=== PATIENT | male | born 1945 | race Caucasian/White ===

== ENCOUNTER 2017-01-15 22:07 | Inpatient (IN) | payer OTHER, BC ==
[~2017-01-15] VITALS: Ht 165.1 cm; Wt 84.8 kg
--- NOTE | 2017-01-15 22:07 | NUR ---
BIBA BLS TO ER BED 3
[2017-01-15 22:09] VITALS: BP 108/65
[2017-01-15] MEDS ORDERED: NACL 0.9% 1,000 ML IV ONE (22:15)
--- NOTE | 2017-01-15 23:00 | NUR ---
71/M BIBA C/O LOW HGB 6.6, EMS STATES PT FROM [facility], GOT CALLED IN AROUND 2114. EMS STATES PMD WANT TO SEND PATIENT TO ER DUE TO LOW HGB. AAOx4, BREATHING EVEN AND EFFORTLESS AT THIS TIME. . PT STATES . DENIES N/V/D; SKIN IS PINK/WARM/DRY; AAOX4 WITH EVEN AND STEADY GAIT; LUNGS CLEAR BL; HR EVEN AND REGULAR; PT DENIES ANY FEVER, CP, SOB, OR COUGH AT THIS TIME; PATIENT STATES PAIN OF 0/10 AT THIS TIME; VSS; PATIENT POSITIONED FOR COMFORT; HOB ELEVATED; BEDRAILS UP X2; BED DOWN. ER MD MADE AWARE OF PT STATUS.
[2017-01-16] MEDS ORDERED: PIPERACILLIN/TAZOBACTAM 3.375 GM in DEXTROSE 5% 50 ML IV ONE
[2017-01-16] MEDS ORDERED: NACL 0.9% 500 ML IV ONE
[2017-01-16] MEDS ORDERED: KETOROLAC 30 MG/ML VIAL IVP ONE
[2017-01-16] MEDS ORDERED: PIPERACILLIN/TAZOBACTAM 3.375 GM VIAL IV ONE (00:25)
[2017-01-16] MEDS ORDERED: ONDANSETRON 4 MG/2 ML VIAL IVP PRN (00:35)
[2017-01-16] MEDS ORDERED: HYDROcodone/APAP 7.5/325 MG 1 TAB PO PRN (00:35)
[2017-01-16] MEDS: NACL 0.9% 1,000 ML IV SCH ×3 (01:58→17:24)
--- NOTE | 2017-01-16 02:14 | NUR ---
RECEIVED PT REPORT FROM ORALIA FROM ER AT THIS TIME.
--- NOTE | 2017-01-16 02:33 | NUR ---
Patient will be admitted to care of DR FRAGOSO. Admited to TELE. Will go to [address]. Belongings list completed. Report to FABY GALLOWAY.
[2017-01-16 02:55] VITALS: BP 101/61
--- NOTE | 2017-01-16 02:55 | NUR ---
RECEIVED PT ONTO UNIT IN ROOM 110B. PT NOTED STABLE, NO ACUTE DISTRESS. PT IS WEAK AND UNABLE TO AMBULATE FROM GURNEY TO BED. PT IS A/OX2, ABLE TO FOLLOW COMMANDS AND VERBALIZE NEEDS. VITAL SIGNS ARE STABLE, PLACED PT ON 2L VIA NASAL CANNULA, OXYGEN SATURATION AT 100%. PT DENIES CHEST PAIN, SOB, NAUSEA, AND DIARRHEA. NO RESPIRATORY DISTRESS AT THIS TIME. PT IS AFEBRILE. IV ACCESS TO LEFT HAND #22G, PATENT AND INTACT. NOTED PT TO HAVE SUPRAPUBIC CATHETER IN PLACE, AND INTACT, DRAINING TO GRAVITY OF YELLOW URINE. PT HAS MULTIPLE WOUNDS, NOTED TO RT HEEL COVERED WITH DRESSING, RT LOWER LEG SKIN TEAR, DRESSING INTACT. SACRAL WOUND NOTED, DRESSING CHANGED. PT HAS MULTIPLE SCABS TO FOREHEAD, AND RT ARM DRY SKIN TEAR. SEE WOUND ASSESSMENT. FNS AND WOUND CONSULTS INITIATED. DISCUSSED PLAN OF CARE WITH PT, VERBALIZED UNDERSTANDING. PT ORIENTED TO UNIT AND CALL LIGHT. SAFETY PRECAUTIONS IMPLEMENTED. CALL LIGHT WITHIN REACH. WILL CONTINUE TO MONITOR.
[2017-01-16 04:00] VITALS: BP 143/77
--- NOTE | 2017-01-16 04:10 | NUR ---
PT STABLE, NO ACUTE DISTRESS. VSS. BP STABLE. CALL LIGHT WITHIN REACH. WILL CONTINUE TO MONITOR.
[2017-01-16] MEDS ORDERED: PIPERACILLIN/TAZOBACTAM 2.25 GM VIAL IV ONE (04:55)
--- NOTE | 2017-01-16 05:05 | NUR ---
SPUTUM COLLECTED AT THIS TIME. NOTED SPUTUM SECRETION YELLOW AND THICK, SENT TO LAB.
[2017-01-16] MEDS ORDERED: PIPER/TAZO 2.25GM/D5W PREMIX 50 ML IV SCH (06:00)
[2017-01-16] MEDS ORDERED: PIPERACILLIN/TAZOBACTAM 3.375 GM in DEXTROSE 5% 50 ML IV SCH (06:00)
--- NOTE | 2017-01-16 07:15 | NUR ---
ENDORSED PT TO ZABRINA Escoto RN AT BEDSIDE FOR CONTINUITY OF CARE. NOTED PT STABLE, NO S/S OF DISTRESS. CALL LIGHT WITHIN REACH.
--- NOTE | 2017-01-16 07:16 | NUR ---
RECEIVED REPORT FROM FABY GALLOWAY. PT IS AAOX2,CONFUSED. PT ON 2L NC O2 SAT AT 99%. NO S/S OF DISTRESS NOTED. PT ON CONTACT ISOLATION WITH SIGNS POSTED ON WALL. IV TO LEFT HAND #20, PATENT AND INTACT. NO N/V OR PAIN INDICATED. SACRAL WOUND NOTED, WOUND TO RIGHT HEEL, SKIN TEAR TO RIGHT LOWER LEG AND RIGHT FA. ALL SAFETY PRECAUTIONS IN PLACE, SIDE RAILSX2, BED IN LOW POSITION, AND CALL LIGHT WITHIN REACH. WILL CONTINUE TO MONITOR.
[2017-01-16 08:00] VITALS: BP 117/60
--- NOTE | 2017-01-16 08:45 | NUR ---
PATIENT HAS BEEN SCREENED AND CATEGORIZED HIGH NUTRITION RISK. PATIENT WILL BE SEEN WITHIN 1-2 DAYS OF ADMISSION. 01/16/17-01/17/[address]
[2017-01-16] MEDS: SACCHAROMYCES 250 MG CAP PO SCH ×2 (09:00→21:30)
[2017-01-16] MEDS: DOCUSATE SODIUM 100 MG GELCAP PO SCH (09:00)
[2017-01-16] MEDS ORDERED: FAMOTIDINE 20 MG TAB PO SCH (09:00)
--- NOTE | 2017-01-16 09:05 | NUR ---
PT TOLERATED MEDS WELL. WILL CONTINUE TO MONITOR.
[2017-01-16] MEDS ORDERED: cloNIDine 0.1 MG TAB PO PRN (11:20)
[2017-01-16] MEDS ORDERED: FUROSEMIDE 40 MG TAB PO SCH (11:24)
[2017-01-16] MEDS ORDERED: guaiFENesin 20 MG/ML UDC PO PRN (11:45)
[2017-01-16] MEDS: CLINDAMYCIN 900 MG in DEXTROSE 5% 100 ML IV SCH ×3 (11:54→23:31)
--- NOTE | 2017-01-16 11:55 | NUR ---
PT TOLERATED MEDS WELL. WILL CONTINUE TO MONITOR.
[2017-01-16 12:00] VITALS: BP 106/61
--- NOTE | 2017-01-16 12:15 | NUR ---
TALKED TO DR COLEEN MD AWARE OF PATIENTS MAGNESIUM AT 1.4, SODIUM AT 132, AND HGB AT 7.2. PT REQUIRES SOFTER DIET, AWARE. MD TO PLACE ORDERS.
--- NOTE | 2017-01-16 14:09 | NUR ---
TALKED TO [facility] [place]. MEDICAL RECORDS DEPARTMENT CLOSE FOR THE WEEKEND. WILL ENDORSE.
[2017-01-16] MEDS: LEVOFLOXACIN 750 MG/D5W PREMIX 150 ML IV SCH (14:40)
--- NOTE | 2017-01-16 14:44 | NUR ---
PT TOLERATED MEDS WELL. WILL CONTINUE TO MONITOR.
--- NOTE | 2017-01-16 15:20 | NUR ---
01/16/17 RD INITIAL ASSESSMENT COMPLETED PLEASE REFER TO NUTRITION ASSESSMENT UNDER CARE ACTIVITY FOR ESTIMATED NUTRITIONAL NEEDS. RD RECOMMENDATIONS: 1. RECOMMEND CHANGING REGULAR DIET TO MECHANICAL SOFT. --NOTE RN REPORT PT WITH POOR APPETITE. --NOTE RN REPORT PT HAVING TROUBLE SWALLOWING MEDICATIONS UNLESS IT IS CRUSHED. 2. RD WILL PROVIDE [facility] TID WITH MEALS FOR AN ADDITIONAL 900 KCAL AND 27 GM OF PROTEIN DAILY. 3. ENCOURAGE INCREASED PO INTAKE. 4. RD WILL F/U 2-3 DAYS; HIGH RISK. COBY MCCAIN, RD
--- NOTE | 2017-01-16 15:50 | NUR ---
RT IN TO SEE PT, TO COLLECT SPUTUM.
--- NOTE | 2017-01-16 15:51 | NUR ---
STOOL SENT TO THE LAB TO CHECK FOR OCCULT BLOOD.
[2017-01-16 16:00] VITALS: BP 120/68
--- NOTE | 2017-01-16 16:07 | NUR ---
DR POLK IN TO SEE PT. WILL FOLLOW UP ON ORDERS.
[2017-01-16] MEDS ORDERED: MAGNESIUM OXIDE 400 MG TAB PO SCH (17:00)
[2017-01-16] MEDS: FUROSEMIDE 40 MG TAB PO SCH (17:24)
--- NOTE | 2017-01-16 17:35 | NUR ---
PT TOLERATED MEDS WELL. WILL CONTINUE TO MONITOR.
--- NOTE | 2017-01-16 19:05 | NUR ---
RECEIVED REPORT FROM FABY GERBER AT BEDSIDE. INITIAL ASSESSMENT COMPLETED. PT AA0X2. PT CONFUSED AT TIMES. PT ON 02 2L NASAL CANULA. PT HAS A SUPRAPUBIC CATHETER. PT HAS SCDS ON. PT HAS IV TO LEFT HAND 22 G, INFUSING FLUIDS WELL. PT HAS A SACRAL WOUND COVERED WITH DRESSING DRY AND INTACT. PT HAS A RIGHT HEEL WOUND COVERED WITH DRESSING. ORIENTED PT TO ROOM AND SURROUNDINGS AND USE OF CALL LIGHT. SAFETY/FALL RISK MEASURES IN PLACE, WILL CONTINUE TO MONITOR PT.
--- NOTE | 2017-01-16 19:18 | NUR ---
ENDORSED CARE TO FABY KOTHARI. PT IN STABLE CONDITION.
[2017-01-16 20:00] VITALS: BP 138/78
--- NOTE | 2017-01-16 20:00 | NUR ---
PT TURNED/REPOSITIONED WITH HELP OF PHYLICIA DOWLING. PT TOLERATED IT WELL. NO SIGNS OF DISTRESS OR DISCOMFORT NOTED. WILL CONTINUE TO MONITOR PT.
[2017-01-16] MEDS ORDERED: SACCHAROMYCES 250 MG CAP PO SCH (21:00)
[2017-01-16] MEDS: GABAPENTIN 100 MG CAP PO SCH (21:30)
[2017-01-16] MEDS: NYSTATIN POW 100 MU/GM 15 GM BTL TP SCH (21:33)
--- NOTE | 2017-01-16 21:40 | NUR ---
PT TOLERATED 2100 MEDS WELL, WILL CONTINUE TO MONITOR PT.
--- NOTE | 2017-01-16 22:00 | NUR ---
PT TURNED/REPOSITIONED WITH HELP OF PHYLICIA DOWLING. PT TOLERATED IT WELL. NO SIGNS OF DISTRESS OR DISCOMFORT NOTED. WILL CONTINUE TO MONITOR PT.
[2017-01-17] VITALS: BP 144/78
--- NOTE | 2017-01-17 | NUR ---
PT TURNED/REPOSITIONED WITH HELP OF PHYLICIA DOWLING. PT TOLERATED IT WELL. NO SIGNS OF DISTRESS OR DISCOMFORT NOTED. CHECKED VS AND ARE STABLE. WILL CONTINUE TO MONITOR PT.
--- NOTE | 2017-01-17 01:00 | NUR ---
PT REFUSED TO ALLOWED US TO ASSESS WOUNDS/TEARS. WITNESS BY JOSEY WHATLEY. WILL CONTINUE TO MONITOR.
--- NOTE | 2017-01-17 03:18 | NUR ---
PT REQUESTING ANOTHER BLANKET, PT STABLE, WILL CONTINUE TO MONITOR PT.
[2017-01-17] MEDS: CLINDAMYCIN 900 MG in DEXTROSE 5% 100 ML IV SCH ×4 (05:52→23:29)
[2017-01-17] MEDS: PANTOPRAZOLE 40 MG TABEC PO SCH (05:52)
--- NOTE | 2017-01-17 05:55 | NUR ---
0600 ANTIBIOTIC INFUSING NOW. PT TURNED/REPOSITIONED. WITH HELP OF PHYLICIA DOWLING. PT HAS BEEN TURNED Q2H THROUGHOUT THE SHIFT.
[2017-01-17 06:00] VITALS: BP 140/79
--- NOTE | 2017-01-17 06:00 | NUR ---
PT TURNED/REPOSITIONED WITH HELP OF PHYLICIA DOWLING. PT TOLERATED IT WELL. NO SIGNS OF DISTRESS OR DISCOMFORT NOTED. WILL CONTINUE TO MONITOR PT.
--- NOTE | 2017-01-17 06:55 | NUR ---
RECEIVED CRITICAL LAB VALUE HEMOGLOBIN 6.4, HEMATOCRIT 20.1. CALLED RESIDENTS, AWAITING STRUCTURAL STEEL EQUIPMENT ERECTOR BACK.
--- NOTE | 2017-01-17 07:24 | NUR ---
DR. MARRERO AWARE OF PT'S CRITICAL LAB VALUES: HEMOGLOBIN 6.4, HEMATOCRIT 20.1.
--- NOTE | 2017-01-17 07:26 | NUR ---
ENDORSED PT IN STABLE CONDITION TO FABY Escoto FOR CONTINUITY OF CARE.
--- NOTE | 2017-01-17 07:27 | NUR ---
RECEIVED REPORT FROM FABY KOTHARI. PT IS AAOX4, FORGETFUL AT TIMES. PT ON 2L NC. NO S/S OF DISTRESS NOTED. IV TO LEFT HAND #2 PATENT AND INTACT. WOUND NOTED TO SACRAL AREA, RIGHT HEEL WOUND, RIGHT LEG SKIN TEAR, AND RIGHT FA SKIN TEAR. NO N/V OR PAIN INDICATED. PT ON CONTACT PRECAUTIONS WITH SIGNS POSTED ON WALL, PRECAUTIONS IN PLACE. ALL SAFETY PRECAUTIONS IN PLACE, SIDE RAILSX2, BED IN LOW POSITION, AND CALL LIGHT WITHIN REACH. WILL CONTINUE TO MONITOR.
[2017-01-17 08:00] VITALS: BP 113/61
[2017-01-17] MEDS: SACCHAROMYCES 250 MG CAP PO SCH ×2 (08:59→20:18)
[2017-01-17] MEDS: GABAPENTIN 100 MG CAP PO SCH ×2 (08:59→20:18)
[2017-01-17] MEDS: ECOTRIN 81 MG TABEC PO SCH (09:00)
[2017-01-17] MEDS: FUROSEMIDE 40 MG TAB PO SCH ×2 (09:00→17:01)
[2017-01-17] MEDS: DOCUSATE SODIUM 100 MG GELCAP PO SCH (09:00)
[2017-01-17] MEDS: NYSTATIN POW 100 MU/GM 15 GM BTL TP SCH ×2 (09:01→20:19)
--- NOTE | 2017-01-17 09:18 | NUR ---
VSS. PT TOLERATED MEDS WELL. WILL ADMINISTER BENADRYL AND TYLENOL PRIOR TO BLOOD TRANSFUSION. BLOOD NOT READY AT THIS TIME. WILL CONTINUE TO MONITOR.
--- NOTE | 2017-01-17 09:20 | NUR ---
DR BELLO IN TO SEE PT. WILL FOLLOW UP ON ORDERS.
[2017-01-17] MEDS ORDERED: MAGNESIUM OXIDE 400 MG TAB PO SCH (09:29)
[2017-01-17] MEDS ORDERED: CALCIUM ACETATE 667 MG TAB PO SCH (09:29)
--- NOTE | 2017-01-17 10:06 | NUR ---
RECEIVED CALL FROM LAB. PT'S SECOND SPUTUM CULTURE REJECTED BY CARLOS SAGASTUME. WILL FOLLOW UP WITH .
--- NOTE | 2017-01-17 10:08 | NUR ---
TALKED TO LUIS M PATEL PER TO COLLECT THIRD SAMPLE OF SPUTUM CULTURE WHEN SPUTUM IS POSSIBLE.
--- NOTE | 2017-01-17 10:30 | NUR ---
DR CASTILLO IN TO SEE PT. CHANGED PT'S CATHETER. WILL CONTINUE TO MONITOR.
[2017-01-17] MEDS: ACETAMINOPHEN 325 MG TAB PO SCH ×3 (10:41→16:00)
--- NOTE | 2017-01-17 10:47 | NUR ---
PT TOLERATED MEDS WELL. WILL CONTINUE TO MONITOR.
--- NOTE | 2017-01-17 11:11 | NUR ---
BLOOD COLLECT FROM BLOOD BANK, WILL ADMINISTER.
--- NOTE | 2017-01-17 11:21 | NUR ---
BLOOD TRANSFUSION STARTED. VSS. PT TOLERATING WELL. NO S/S OF DISTRESS NOTED.
--- NOTE | 2017-01-17 11:36 | NUR ---
15 MIN POST TRANSFUSION, PT TOLERATING WELL. NO S/S OF REACTION NOTED. FAMILY PRESENT AT BEDSIDE. WILL CONTINUE TO MONITOR.
[2017-01-17 12:00] VITALS: BP 126/70
--- NOTE | 2017-01-17 12:24 | NUR ---
CLEOCIN WILL BE ADMINISTERED POST TRANSFUSION. WILL ADMINISTER BENADRYL AND TYLENOL AT 1521, FOUR HOURS WHEN TRANSFUSION BEGAN.
--- NOTE | 2017-01-17 12:48 | NUR ---
TALKED TO [facility] STAFF, MEDICAL RECORDS NOT OPEN TODAY TO REQUEST FOR RECORDS. WILL ENDORSE.
[2017-01-17] MEDS: NACL 0.9% 1,000 ML IV SCH (14:14)
--- NOTE | 2017-01-17 14:15 | NUR ---
BLOOD TRANSFUSION COMPLETED. VSS. NO S/S OF DISTRESS NOTED. WILL ADMINISTER LASIX ORDERED. PT TOLERATED. WELL.
[2017-01-17] MEDS: FUROSEMIDE 20 MG TAB PO PRN ×2 (14:26→19:47)
--- NOTE | 2017-01-17 14:27 | NUR ---
BP 121/71, HR 88, ADMINISTERED LASIX ORDERED. WILL CONTINUE TO MONITOR.
[2017-01-17] MEDS: LEVOFLOXACIN 750 MG/D5W PREMIX 150 ML IV SCH (15:17)
--- NOTE | 2017-01-17 15:34 | NUR ---
PT TOLERATED MEDS WELL. WILL CONTINUE TO MONITOR.
--- NOTE | 2017-01-17 15:39 | NUR ---
MEDICAL RECORDS REQUESTED FROM [facility] [place] [address]. MEDICAL RECORDS REQUESTED FROM [facility].
--- NOTE | 2017-01-17 15:50 | NUR ---
NEW IV STARTED ON RIGHT HAND #22, PATENT AND INTACT. REQUIRED FOR SCHEDULED ANTIBIOTICS.
[2017-01-17 16:00] VITALS: BP 117/83
--- NOTE | 2017-01-17 16:16 | NUR ---
SECOND UNIT OF BLOOD TRANSFUSION STARTED. VSS. NO DISTRESS NOTED. WILL CONTINUE TO MONITOR.
--- NOTE | 2017-01-17 16:31 | NUR ---
NO REACTION NOTED. VSS. WILL CONTINUE TO MONITOR.
--- NOTE | 2017-01-17 17:00 | NUR ---
VSS. NO S/S OF DISTRESS NOTED.
--- NOTE | 2017-01-17 18:00 | NUR ---
VSS. NO S/S OF DISTRESS NOTED.
--- NOTE | 2017-01-17 19:15 | NUR ---
HELD TYLENOL AND BENADRYL, BLOOD TRANSFUSION TO BE COMPLETED.
--- NOTE | 2017-01-17 19:16 | NUR ---
ENDORSED CARE TO FABY GALARZA. PT IN STABLE CONDITION.
--- NOTE | 2017-01-17 19:20 | NUR ---
RECEIVED PT SLEEPING, EASILY AROUSABLE, AAOX3, FORGETFUL AT TIMES, PRESENTLY GETTING 2ND UNIT PRBC, NO SIGNS OF REACTION, ON O2 AT 2L/NC, NO SOB NOTED, DENIES ANY PAIN, WITH SUPRAPUBIC CATHETER IN PLACE DRAINING CLEAR YELLOW URINE OUTPUT, SAFETY MEASURES IN PLACE, MAINTAINED ON CONTACT ISOLATION, CALL LIGHT WITHIN REACH.
--- NOTE | 2017-01-17 19:50 | NUR ---
2ND UNIT PRBC DONE, VITAL SIGNS STABLE, NO SIGNS OF ADVERSE REACTION NOTED, LASIX PO GIVEN ORDERED, IVF OF NS @ 70ML/H RESUMED, ALL NEEDS ATTENDED.
[2017-01-17 20:00] VITALS: BP 128/72
--- NOTE | 2017-01-17 21:12 | NUR ---
PT REFUSED TO CHANGE POSITION AT THIS TIME, SAID "LATER", RISK AND BENEFITS EXPLAINED, WILL TRY AGAIN LATER, PT WENT BACK TO SLEEP, MONITORED CLOSELY.
--- NOTE | 2017-01-17 22:20 | NUR ---
ROUNDED ON PT, SLEEPING, NO SIGNS OF DISTRESS, IVF INFUSING WELL, MONITORED CLOSELY.
[2017-01-18] VITALS: BP_SYST 126; BP_SYST 136; BP_DIAS 76
--- NOTE | 2017-01-18 00:10 | NUR ---
PT SLEEPING, EASILY AROUSABLE, VITAL SIGNS STABLE, DENIES ANY PAIN, REPOSITION TO LEFT SIDE AND OFFLOAD PRESSURE AREAS, DRESSINGS DRY AND INTACT, NO BLEEDING OR DRAINAGE NOTED ON THE SUPRAPUBIC CATHETER SITE, IV ANTIBIOTIC INFUSING WELL, CONTINUE TO MONITOR CLOSELY.
--- NOTE | 2017-01-18 02:00 | NUR ---
PT SLEEPING, EASILY AROUSABLE, REPOSITIONED TO RT SIDE AND OFFLOAD PRESSURE AREAS, MONITORED CLOSELY.
[2017-01-18 04:00] VITALS: BP 108/68
--- NOTE | 2017-01-18 04:10 | NUR ---
PT EASILY AROUSABLE, DENIES ANY PAIN, VITAL SIGNS STABLE, REPOSITION TO LEFT SIDE, DRESSINGS DRY AND INTACT, MONITORED CLOSELY.
[2017-01-18] MEDS: NACL 0.9% 1,000 ML IV SCH (05:06)
[2017-01-18] MEDS: CLINDAMYCIN 900 MG in DEXTROSE 5% 100 ML IV SCH ×3 (05:19→17:21)
[2017-01-18] MEDS: PANTOPRAZOLE 40 MG TABEC PO SCH (05:31)
--- NOTE | 2017-01-18 05:35 | NUR ---
DUE IV ANTIBIOTIC ADMINISTERED, PO MEDICATION TAKEN, TOLERATED WELL, INSTRUCTED TO COLLECT SPUTUM, CONTAINER AT BEDSIDE, MONITORED CLOSELY.
--- NOTE | 2017-01-18 07:10 | NUR ---
RECEIVED PATIENT REPORT AT BEDSIDE. PATIENT AWAKE, ALERT AND ORIENTED. NO S/S OF DISTRESS NOTED. PATIENT ON 2L O2. SUPRAPUBIC CATHETER IN PLACE, DRAINING CLEAR YELLOW URINE. PATIENT ON TELE MONITORING. BED LOWERED WITH CALL LIGHT WITHIN REACH. WILL CONTINUE TO MONITOR
--- NOTE | 2017-01-18 07:20 | NUR ---
PT SLEEPING, EASILY AROUSABLE, REPORT GIVEN TO FABY KITCHEN FOR CONTINUITY OF CARE.
[2017-01-18 08:00] VITALS: BP 114/74
--- NOTE | 2017-01-18 09:10 | NUR ---
FNS CONSULT RECEIVED ON 01/18/17. RD PERFORMED INITIAL ASSESSMENT ON 01/16/17 FOR HIGH RISK SCREENING AND WILL FOLLOW UP FOR REASSESSMENT ON 01/19/17.
--- NOTE | 2017-01-18 09:30 | NUR ---
PATIENT SEEN BY THE PHYSICAL THERAPIST. PATIENT WAS ABLE TO GET AND DO SIDE STEPS USING THE WALKER.
[2017-01-18] MEDS: ECOTRIN 81 MG TABEC PO SCH (09:54)
[2017-01-18] MEDS: SACCHAROMYCES 250 MG CAP PO SCH ×2 (09:54→20:55)
[2017-01-18] MEDS: FUROSEMIDE 40 MG TAB PO SCH ×2 (09:54→17:22)
[2017-01-18] MEDS: GABAPENTIN 100 MG CAP PO SCH ×2 (09:54→20:54)
[2017-01-18] MEDS: NYSTATIN POW 100 MU/GM 15 GM BTL TP SCH ×2 (09:55→21:00)
[2017-01-18] MEDS: DOCUSATE SODIUM 100 MG GELCAP PO SCH (09:55)
--- NOTE | 2017-01-18 10:05 | NUR ---
WOUND CARE EVALUATION NOTES: REASON FOR EVALUATION: MULTIPLE SACRAL ULCERS, RIGHT HEEL ULCER COMPLETE SKIN ASSESSMENT DONE ON THIS 71 Y/O MALE PATIENT FROM [facility], WITH INITIAL DIAGNOSIS OF PNEUMONIA, SEVERE ANEMIA, UTI, HYPONATREMIA AND DEHYDRATION. PAST MEDICAL HISTORY INCLUDE PROSTATE CANCER, OSTEOMYELITIS OF SYMPHYSIS PUBIS, SCROTAL ABSCESS, CAD AND HYPERTENSION. ALL ABOVE INFORMATION WAS OBTAINED FROM THE ADMISSION H&P. LABS ARE WBC 6.0, H/H 8.8/27.2, GLUCSOE 87, ALBUMIN 1.5, PT/INR 12.3/1.3 AND PTT 21.7. CURRENT MEDS INCLUDE ASPIRIN, HEPARIN, LEVOFLOXACIN, CLINDAMYCIN AND MORPHINE. PATIENT IS AWAKE, ORIENTED TO PERSON AND PLACE BUT NOT TO DATE AND TIME. SKIN WARM TO TOUCH WNL, TOENAILS ARE LONG, NO EDEMA, WITH HAIR GROWTH AND +2 BILATERAL PEDAL PULSES. ABLE TO TURN SELF WITH MINIMAL ASSISTANCE. SUPRAPUBIC CATHETHER 14FR PATENT AND INTACT TO LIGHT MARIA FERNANDA URINE IN MODERATE AMOUNT. ON 02 PER NASAL CANNULA. INITIAL PLAN OF CARE AND PRESSURE PREVENTIVE MEASURES DISCUSSED, ABLE TO VERBALIZE UNDERSTANDING. INTEGUMENTARY: SACRALCOCCYX TO BILATERAL BUTTOCKS - UTD RIGHT HEEL - ST III RIGHT ARM - SKIN TEAR RIGHT LE - SKIN TEAR PERIAREA TO SCROTAL AREA, BILATERAL GROIN DENUDED BUE - WITH SCATTERED ECCHYMOSIS - PURPLE RECOMMENDATIONS: -CLEANSE SACRALCOCCYX TO BILATERAL BUTTOCKS WITH WOUND CLEANSER, PAT DRY, APPLY THERAHONEY GEL, COVER WITH ADAPTIC AND DRY DRESSING Q DAY AND PRN WITH SOILING/DISPLACEMENT -CLEANSE RIGHT HEEL WITH WOUND CLEANSE, PAT DRY, APPLY THERAHONEY GEL, COVER WITH ADAPTIC, GAUZE AND WRAP WITH SEDA Q DAY AND PRN WITH SOILING/DISPLACEMENT -CLEANSE RIGHT ARM AND RIGHT LEG SKIN TEAR WITH NS AND GAUZE, PAT DRY, COVER WITH VERSATEL Q 5 DAYS AND PRN WITH SOILING/DISPLACEMENT. CHECK DRESSING PLACEMENT DAILY -TURN AND REPOSITION PATIENT Q 2H TO LEFT AND RIGHT SIDE ONLY TO OFFLOAD SACRALCOCCYX TO BILATERAL BUTTOCKS, WITH THE EXCEPTION DURING MEALTIMES --ASSESS AND MONITOR SKIN CONDITION DURING POSITION CHANGE, PLEASE PAY PARTICULAR ATTENTION TO SACRALCOCCYX, ELBOWS AND HEELS -OFFLOAD BILATERAL HEELS BY PLACING PILLOWS UNDER CALVES AT ALL TIMES, UNLESS OTHERWISE CONTRAINDICATED -PRESSURE REDISTRIBUTION SURFACE THERAPY -PODIATRY CONSULT IF OK WITH PMD RECOMMENDATIONS DISCUSSED WITH PRIMARY RN AND RESIDENT PHYSICIAN DR DESAI. WILL FOLLOW UP PATIENT Q 7 DAYS AND PRN. PLEASE CONTACT [facility] FOR ANY CONCERNS, QUESTIONS AND CHANGES IN SKIN CONDITION.
[2017-01-18] MEDS ORDERED: MAGNESIUM OXIDE 400 MG TAB PO SCH (11:00)
[2017-01-18 12:00] VITALS: BP 126/70
--- NOTE | 2017-01-18 12:00 | NUR ---
PATIENT TURNED AND REPOSITIONED. PATIENT TOLERATED WELL
[2017-01-18] MEDS ORDERED: VITAMIN A/VITAMIN D OINT 113 GM TUBE TP PRN (14:15)
--- NOTE | 2017-01-18 14:55 | NUR ---
PT IS AWAKE AND ALERT. ATTEMPTED TO COLLECT SPUTUM PT UNABLE TO EXPECTORATE SPUTUM AT THIS TIME. SPECIMEN CUP PLACED AT PT BEDSIDE. PT IS AWARE OF NEED FOR SPECIMEN. B.S CLEAR/DIMINISHED.
[2017-01-18] MEDS: LEVOFLOXACIN 750 MG/D5W PREMIX 150 ML IV SCH (15:31)
[2017-01-18 16:00] VITALS: BP 146/84
--- NOTE | 2017-01-18 16:40 | NUR ---
PATIENT ASLEEP IN BED. NO S/S OF DISTRESS NOTED
[2017-01-18] MEDS: THERAHONEY GEL 42.5 GM TP SCH ×2 (18:36→18:38)
[2017-01-18] MEDS ORDERED: THERAHONEY GEL 42.5 GM TP PRN ×2 (18:40)
--- NOTE | 2017-01-18 19:35 | NUR ---
ENDORSED CONTINUITY OF CARE TO THE NIGHT NURSE. PATIENT IN STABLE CONDITION
--- NOTE | 2017-01-18 19:36 | NUR ---
RECD. RESTING IN BED, AWAKE, A/0X3, WITH FORGETFULNESS. RESPIRATION EVEN AND UNLABORED. ON O2 AT 2 LITERS VIA N/C, 02 SAT - 99%. MULTIPLE SCABS ON FACE NOTED. IV OF NS AT 70 ML/HR INFUSING, LEFT HAND G 22, SALINE LOCK AT THE RIGHT HAND G22, PATENT, INTACT.SAFETY MEASURES ENFORCED. WITH SUPRA PUBIC CATHETER CONNECTED TO F/C BAG DRAINING CLEAR YELLOW URINE. WITH SACRAL WOUNDS COVERED WITH DRESSING. RIGHT HEEL WOUND COVERED WITH KERLIX DRESSING. PLAN OF CARE FOR THE SHIFT DISCUSSED. VERBALIZED UNDERSTANDING. DENIES PAIN 0/10.
--- NOTE | 2017-01-18 19:59 | NUR ---
WOUND DRESSING TO THE RIGHT HEEL DONE ORDERED
[2017-01-18 20:00] VITALS: BP 132/71
--- NOTE | 2017-01-18 20:00 | NUR ---
Patient's Plan of Care was discussed and reviewed with SILK SCREEN FRAME ASSEMBLER: ISAIAS PORTILLO
--- NOTE | 2017-01-18 20:55 | NUR ---
DUE PO MEDICATIONS GIVEN WITH APPLE SAUCE, TOLERATED WELL.
--- NOTE | 2017-01-18 22:15 | NUR ---
DR. LAWTON FOR DR. DUONG, CAME AND TRIM PATIENT'S TOE NAILS.
[2017-01-19] VITALS: BP 151/80
[2017-01-19] MEDS: CLINDAMYCIN 900 MG in DEXTROSE 5% 100 ML IV SCH ×4 (00:10→17:46)
--- NOTE | 2017-01-19 00:25 | NUR ---
SLEEPING COMFORTABLY IN BED, NO RESPIRATORY DISTRESS NOTED.
[2017-01-19] MEDS: NACL 0.9% 1,000 ML IV SCH ×2 (01:33→10:00)
[2017-01-19 04:00] VITALS: BP 122/78
--- NOTE | 2017-01-19 04:00 | NUR ---
WOKE UP EARLY, WATCHED TV.
[2017-01-19] MEDS: PANTOPRAZOLE 40 MG TABEC PO SCH (06:18)
--- NOTE | 2017-01-19 06:45 | NUR ---
RESTING COMFORTABLY IN BED, CONDITION REMAIN STABLE. WILL ENDORSE TO AM NURSE FOR CONTINUITY OF CARE.
--- NOTE | 2017-01-19 07:20 | NUR ---
ENDORSED TO FABY BOYER FOR CONTINUITY OF CARE.
--- NOTE | 2017-01-19 07:21 | NUR ---
PT RECEIVED FROM VANITA ESPARZA AWAKE AND LYING ON BED, AAOX4, WITH NO S/S OF RESPIRATORY DISTRESS OR DISCOMFORT, WITH O2 2LPM VIA NC. WITH IV ACCESS ON RIGHT HAND G22 ON SALINE LOCK PATENT AND INTACT. ALSO HAS IV ACCESS ON LEFT HAND 2O G INFUSING FLUIDS WELL. WITH SUPRAPUBIC CATHETER CONNECTED TO URINE BAG DRAINING YELLOW CLEAR URINE, DRESSING DRY AND INTACT. WITH WOUND DRESSING ON SACRAL AREA AND RIGHT ANKLE COVERED WITH SEDA. DISCUSSED PLAN OF CARE, PT VERBALIZED UNDERSTANDING. SAFETY PRECAUTIONS ENFORCED. CALL LIGHT WITHIN REACH, WILL CONTINUE TO MONITOR.
[2017-01-19 08:00] VITALS: BP 125/75
[2017-01-19] MEDS: GABAPENTIN 100 MG CAP PO SCH ×2 (08:54→21:28)
[2017-01-19] MEDS: FUROSEMIDE 40 MG TAB PO SCH (08:55)
[2017-01-19] MEDS: ECOTRIN 81 MG TABEC PO SCH (08:55)
[2017-01-19] MEDS: DOCUSATE SODIUM 100 MG GELCAP PO SCH (08:55)
--- NOTE | 2017-01-19 08:55 | NUR ---
DUE MEDS GIVEN, PT TOLERATED WELL. CALL LIGHT WITHIN REACH, WILL CONTINUE TO MONITOR
[2017-01-19] MEDS: SACCHAROMYCES 250 MG CAP PO SCH ×2 (08:56→21:28)
[2017-01-19] MEDS: NYSTATIN POW 100 MU/GM 15 GM BTL TP SCH ×2 (08:56→21:37)
[2017-01-19] MEDS ORDERED: MAG SULF 2000 MG/WATER PREMIX 100 ML IV SCH (10:00)
--- NOTE | 2017-01-19 10:04 | NUR ---
SACRAL WOUND DRESSING AND RIGHT ANKLE WOUND DRESSING CHANGED. NO DRAINAGE NOTED. PT TOLERATED WELL. CALL LIGHT WITHIN REACH, WILL CONTINUE TO MONITOR.
--- NOTE | 2017-01-19 10:52 | NUR ---
RELATIVES AT BEDSIDE. PT DOING PHYSICAL THERAPY. TOLERATED WELL.
[2017-01-19 12:00] VITALS: BP 121/79
[2017-01-19] MEDS: THERAHONEY GEL 42.5 GM TP SCH ×2 (12:40)
--- NOTE | 2017-01-19 12:46 | NUR ---
LUNCH SERVED, PT HAS FAIR APPETITE. NOTIFIED DR. DESAI REGARDING FNS DIET RECOMMENDATION
--- NOTE | 2017-01-19 13:35 | NUR ---
01/19/17 RD FOLLOW UP COMPLETED PLEASE REFER TO NUTRITION PROGRESS NOTE UNDER CARE ACTIVITY FOR ESTIMATED NUTRITION NEEDS. RD RECOMMENDATIONS: 1. RECOMMEND MECHANICAL SOFT DIET D/T PT ONLY TOLERATING SOFT FOODS AND SMALL MEDICATIONS PER RN. --NOTE RD SPOKE WITH RN AND MD ABOUT MECHANICAL SOFT DIET, RN AND MD ACKNOWLEDGED. 2. RECOMMEND BOOST PLUS TID FOR AN ADDITIONAL 1,080 KCAL AND 42 G PROTEIN DAILY. --NOTE RD SPOKE WITH MD ABOUT ADDING BOOST PLUS TID, MD ACKNOWLEDGED. 3. ENCOURAGE INCREASED PO INTAKE. --NOTE CURRENTLY MEETING 36% OF PT ESTIMATED KCAL NEEDS AND 40% OF PT ESTIMATED PROTEIN NEEDS WITH AVG PO INTAKE OF 25%. --INADEQUATE 4. RD WILL F/U 2-3 DAYS; HIGH RISK. COBY MCCAIN, RD
--- NOTE | 2017-01-19 13:45 | NUR ---
DR POLK AT NURSES' STATION
--- NOTE | 2017-01-19 13:51 | NUR ---
PT AWAKE LYING ON BED, NO S/S OF RESPIRATORY DISTRESS. KEPT PT CLEAN AND DRY. CALL LIGHT WITHIN REACH, WILL CONTINUE TO MONITOR.
[2017-01-19] MEDS: LEVOFLOXACIN 750 MG/D5W PREMIX 150 ML IV SCH (15:23)
--- NOTE | 2017-01-19 15:25 | NUR ---
PT AWAKE WATCHING TV, NO COMPLAINTS AT THIS TIME. ALL NEEDS MET, WILL CONTINUE TO MONITOR.
[2017-01-19 16:00] VITALS: BP 121/70
[2017-01-19] MEDS ORDERED: MAG SULF 2000 MG/WATER PREMIX 50 ML IV SCH (17:20)
[2017-01-19] MEDS: ACETAMINOPHEN 325 MG TAB PO PRN (17:46)
--- NOTE | 2017-01-19 17:51 | NUR ---
PT AWAKE WATCHING TV, NO SIGNS OF DISTRESS AT THIS TIME. CALL LIGHT WITHIN REACH, WILL CONTINUE TO MONITOR.
--- NOTE | 2017-01-19 19:04 | NUR ---
ENDORSED PT TO VANITA ESPARZA IN STABLE CONDITION FOR CONTINUITY OF CARE
--- NOTE | 2017-01-19 19:05 | NUR ---
RECD. RESTING IN BED, AWAKE, A/OX4, WITH OCCASIONAL FORGETFULNESS. IV OF NS AT 70 ML/HR INFUSING LEFT HAND G 22. SALINE LOCK AT THE RIGHT HAND G22, PATENT, INTACT. ON 02 AT 2 LITERS N/C, 02 SAT - 99%. LUNG SOUNDS DIMINISHED ON BILATERAL LUNG AUSCULTATION. WITH SUPRAPUBIC CATHETER, CLEAR YELLOW URINE NOTED IN THE F/C BAG. WITH MULTIPLE PRESSURE ULCERS, ON WOUND CARE BED. PLAN OF CARE FOR THE SHIFT DISCUSSED. VERBALIZED UNDERSTANDING. DENIES PAIN 0/10.
--- NOTE | 2017-01-19 19:20 | NUR ---
Patient's Plan of Care was discussed and reviewed with BULK FLUIDS HANDLER: ISAIAS PORTILLO.
[2017-01-19 20:00] VITALS: BP 118/83
--- NOTE | 2017-01-19 21:28 | NUR ---
DUE PO MEDICATIONS, TOLERATED WELL. NO S/S OF ASPIRATION NOTED.
--- NOTE | 2017-01-19 22:00 | NUR ---
BILATERAL HEEL PROTECTORS APPLIED ORDERED.
[2017-01-20] VITALS: BP 125/73
--- NOTE | 2017-01-20 | NUR ---
RESTING COMFORTABLY SLEEPING IN BED, NO SOB NOTED.
[2017-01-20] MEDS: CLINDAMYCIN 900 MG in DEXTROSE 5% 100 ML IV SCH ×5 (00:53→23:48)
[2017-01-20 04:00] VITALS: BP 126/69
--- NOTE | 2017-01-20 05:00 | NUR ---
WOKE UP EARLY AND WATCH TV.
--- NOTE | 2017-01-20 06:45 | NUR ---
CONDITION REMAIN STABLE. WILL ENDORSED TO AM NURSE FOR CONTINUITY OF CARE.
--- NOTE | 2017-01-20 07:20 | NUR ---
ENDORSED TO TREVIN RN FOR CONTINUITY OF CARE.
--- NOTE | 2017-01-20 07:21 | NUR ---
PT AWAKE ALERT AND ORIENTED X3 WITH PERIODS OF FORGETFULNESS. BREATHING EVENLY AND UNLABORED, NO SIGNS OF ACUTE DISTRESS. SKIN IS WARM AND DRY. OFFLOAD TO PRESSURE AREAS, TURNED AND REPOSITIONED. NO C/O ANY BOWEL OR BLADDER DISCOMFORT AT THIS TIME. NO C/O OF AND PAIN AT THIS TIME. CONTACT AND SAFETY PRECAUTIONS MAINTAINED. ALL NEEDS ANTICIPATED, CALL LIGHT WITHIN REACH.
[2017-01-20] MEDS: PANTOPRAZOLE 40 MG TABEC PO SCH (07:30)
[2017-01-20 08:00] VITALS: BP 114/69
[2017-01-20] MEDS: DOCUSATE SODIUM 100 MG GELCAP PO SCH (08:40)
[2017-01-20] MEDS: GABAPENTIN 100 MG CAP PO SCH ×2 (08:40→21:29)
[2017-01-20] MEDS: ECOTRIN 81 MG TABEC PO SCH (08:40)
[2017-01-20] MEDS: SACCHAROMYCES 250 MG CAP PO SCH ×2 (08:40→21:29)
[2017-01-20] MEDS: NYSTATIN POW 100 MU/GM 15 GM BTL TP SCH ×2 (08:46→21:00)
--- NOTE | 2017-01-20 10:20 | NUR ---
RECEIVED NEW ORDER FROM DR. RANDLE. OBTAIN CONSENT FOR SACRAL DEBRIDEMENT. NOTED AND CARRIED OUT. Addendum: 01/20/17 at 1024 by Willie Marin RN RECEIVED NEW ORDER FROM ZAFAR PAREDES. OBTAIN CONSENT FOR SACRAL DEBRIDEMENT. NOTED AND CARRIED OUT.
[2017-01-20] MEDS ORDERED: LIDOCAINE 1% 500 MG/50 ML VIAL INJ SCH (10:30)
--- NOTE | 2017-01-20 11:15 | NUR ---
DR. WHARTON AND WOUND CARE NURSE AT BEDSIDE TO PERFORM SACRAL DEBRIDEMENT. RISKS AND BENEFITS EXPLAINED. CONTINUE TO MONITOR.
[2017-01-20] MEDS: NACL 0.9% 1,000 ML IV SCH ×3 (11:47→14:18)
--- NOTE | 2017-01-20 12:00 | NUR ---
PT S/P SACRAL DEBRIDEMENT, KEPT DRESSING INTACT AND DRY. NO BLEEDING OR DISCHARGE NOTED, TOLERATED WELL CONTINUE TO MONITOR.
[2017-01-20] MEDS: THERAHONEY GEL 42.5 GM TP SCH ×2 (12:09→12:10)
[2017-01-20] MEDS: MORPHINE SULFATE 2 MG/ML SYR IVP PRN (12:15)
--- NOTE | 2017-01-20 14:05 | NUR ---
WAS SEEN BY DR. MARIALUISA BLANCHARD, NEW MED ORDER RECEIVED. NOTED AND CARRIED OUT.
[2017-01-20] MEDS: LEVOFLOXACIN 750 MG/D5W PREMIX 150 ML IV SCH (14:38)
--- NOTE | 2017-01-20 15:30 | NUR ---
WAS SEEN BY DR. LORA, NEW LAB AND IMAGING ORDERS RECEIVED. NOTED AND CARRIED OUT.
[2017-01-20 16:00] VITALS: BP 133/69
[2017-01-20] MEDS: SEVELAMER 800 MG TAB PO SCH (17:10)
--- NOTE | 2017-01-20 18:43 | NUR ---
PT ALERT AND RESPONSIVE, NO SIGNS OF ACUTE DISTRESS. WILL ENDORSE TO ONCOMING TRACTOR DRIVER TEAMSTER NURSE FOR CONTINUITY OF CARE.
--- NOTE | 2017-01-20 19:20 | NUR ---
RECEIVED REPORT FROM [facility]. PT IS AAOX3. HAS NO COMPLAIN OF PAIN. ON NASAL CANNULA AT 2LPM, NO S/S OF RESPIRATORY DISTRESS/DISCOMFORT NOTED. IV SITE IS PATENT AND INTACT. PLAN OF CARE DISCUSSED, VERBALIZED UNDERSTANDING. SAFETY MEASURES CHECKED, CALL LIGHT WITHIN REACH. WILL CONTINUE TO MONITOR.
[2017-01-20 20:00] VITALS: BP 133/73
--- NOTE | 2017-01-20 21:31 | NUR ---
DUE MEDS GIVEN. PATIENT TOLERATED MEDS WELL.
[2017-01-21] VITALS: BP 117/69
--- NOTE | 2017-01-21 | NUR ---
V/S CHECKED AND STABLE. HAS NO COMPLAIN OF PAIN. NO S/S OF RESPIRATORY DISTRESS/DISCOMFORT NOTED.
--- NOTE | 2017-01-21 01:00 | NUR ---
CHANGED DRESSING TO HIS SACRAL AREA. APPLIED THERA HONEY. PT TOLERATED WELL.
--- NOTE | 2017-01-21 03:10 | NUR ---
PT SLEEPING AT THIS TIME. NO S/S OF RESPIRATORY DISTRESS/DISCOMFORT NOTED. CALL LIGHT WITHIN REACH.
--- NOTE | 2017-01-21 05:30 | NUR ---
TRANSPORTED PT TO RADIOLOGY VIA GURNEY FOR CT LUMBAR WITHOUT CONTRAST.
[2017-01-21] MEDS: NACL 0.9% 1,000 ML IV SCH ×3 (06:26→20:46)
[2017-01-21] MEDS: PANTOPRAZOLE 40 MG TABEC PO SCH (06:26)
--- NOTE | 2017-01-21 07:05 | NUR ---
NDORSED REPORT TO [facility] NURSE. PT IS IN STABLE CONDITION.
--- NOTE | 2017-01-21 07:17 | NUR ---
NEW LAB ORDERS RECEIVED FROM DR. DESAI, NOTED AND CARRIED OUT.
[2017-01-21 08:00] VITALS: BP 138/86
[2017-01-21] MEDS: SEVELAMER 800 MG TAB PO SCH (08:00)
[2017-01-21] MEDS: NYSTATIN POW 100 MU/GM 15 GM BTL TP SCH ×2 (08:35→20:47)
[2017-01-21] MEDS: GABAPENTIN 100 MG CAP PO SCH ×2 (08:39→20:46)
[2017-01-21] MEDS: SACCHAROMYCES 250 MG CAP PO SCH (08:39)
[2017-01-21] MEDS: DOCUSATE SODIUM 100 MG GELCAP PO SCH (08:39)
[2017-01-21] MEDS: ECOTRIN 81 MG TABEC PO SCH (08:39)
--- NOTE | 2017-01-21 09:28 | NUR ---
SS NOTE: MESSAGE LEFT FOR PT'S BROTHERRASHARD TO VERIFY PT'S D/C PLAN
--- NOTE | 2017-01-21 09:30 | NUR ---
REFUSED AM PO MEDS. RISKS AND BENEFITS EXPLAINED. MADE AWARE.
--- NOTE | 2017-01-21 10:45 | NUR ---
MEDICAL RECORDS OBTAINED FROM [facility] AND GIVEN TO CONTINUE TO MONITOR.
--- NOTE | 2017-01-21 11:32 | NUR ---
PT REFUSED PHYSICAL THERAPY AT THIS TIME. RISKS AND BENEFITS EXPLAINED. CONTINUE TO MONITOR. MD TO BE MADE AWARE.
[2017-01-21] MEDS: THERAHONEY GEL 42.5 GM TP SCH ×2 (12:00→12:01)
[2017-01-21] MEDS: SEVELAMER CARBONATE 800 MG TAB PO SCH ×2 (12:00→17:00)
--- NOTE | 2017-01-21 13:33 | NUR ---
SS NOTE: I SPOKE WITH PT'S BROTHER, RASHARD REGARDING PT'S D/C PLAN. HE STATED THAT HE WANTS ALL QUESTIONS AND INFORMATION REGARDING PT TO BE DIRECTED TO HIS , PT'S [id number], LILIBETH RASCON ([phone]) SINCE SHE IS A NURSE. HE ALSO STATED THAT HE WOULD LIKE PT'S D/C PLAN TO BE DISCUSSED WITH HER WELL.
[2017-01-21 16:00] VITALS: BP 151/86
--- NOTE | 2017-01-21 18:52 | NUR ---
PT ALERT AND RESPONSIVE, NO SIGNS OF ACUTE DISTRESS. WILL ENDORSE TO ONCOMING SUPERVISOR RECORDS CHANGE NURSE FOR CONTINUITY OF CARE.
--- NOTE | 2017-01-21 19:32 | NUR ---
RECEIVED REPORT FROM TREVIN RN FOR CONTINUITY OF CARE. PATIENT IS A&OX3, DISCUSSED PLAN OF CARE WITH PATIENT ABLE TO VERBALIZE UNDERSTANDING. SHIFT ASSESSMENT DONE, VS TAKEN, STABLE CONDITION. NO S/S OF RESPIRATORY DISTRESS NOTED ON ROOM AIR, PT HAS INTERMITTENT COUGH. PATIENT DENIES PAIN. PT HAS SACRAL WOUND, DRESSING IS DRY AND INTACT. PT HAS RT HEEL ULCER WITH BILATERAL HEEL PROTECTORS TO OFFLOAD PRESSURE. PT ALSO HAS RT LEG AND RT ARM SKIN TEAR. IV TO RT HAND 22 GAUGE AND IV TO LT HAND 22 GAUGE PATENT AND FLUSHED. SUPRAPUBIC CATHETER NOTED WITH CLEAR YELLOW URINE. SAFETY/ FALL / PRESSURE ULCER PREVENTIONS ENFORCED. CALL LIGHT PLACED WITHIN REACH. WILL CONTINUE TO MONITOR.
[2017-01-21 20:00] VITALS: BP 149/69
--- NOTE | 2017-01-21 20:47 | NUR ---
DUE MEDICATIONS ADMINISTERED WITH APPLE SAUCE, TOLERATED WELL. PATIENT STATES "PLEASE LEAVE ME ALONE I WANT TO SLEEP." CALL LIGHT WITHIN REACH.
--- NOTE | 2017-01-21 23:24 | NUR ---
PATIENT HAD SMALL BOWEL MOVEMENT, CLEANED PATIENT, PROVIDED NEW LINENS AND REPOSITIONED. CHANGED WOUND DRESSING PER SOILING. VS TAKEN. CALL LIGHT WITHIN REACH.
[2017-01-22] VITALS: BP 146/79
--- NOTE | 2017-01-22 02:13 | NUR ---
PATIENT IS SLEEPING. NO S/S OF DISTRESS OR DISCOMFORT NOTED. CALL LIGHT WITHIN REACH.
--- NOTE | 2017-01-22 04:08 | NUR ---
TURNED PATIENT TO OFFLOAD PRESSURE. PATIENT IS NOW RESTING. NO S/S OF DISTRESS NOTED. CALL LIGHT WITHIN REACH.
--- NOTE | 2017-01-22 06:05 | NUR ---
PT IS AWAKE WATCHING TELEVISION. NO S/S OF DISTRESS OR DISCOMFORT NOTED. CALL LIGHT WITHIN REACH.
[2017-01-22] MEDS: PANTOPRAZOLE 40 MG TABEC PO SCH (06:48)
--- NOTE | 2017-01-22 07:16 | NUR ---
ENDORSED PATIENT TO DEBORAH HOBBS FOR CONTINUITY OF CARE, PATIENT IS IN STABLE CONDITION.
--- NOTE | 2017-01-22 07:17 | NUR ---
RECEIVED REPORT FROM THE MARINE PHOTOGRAPHER NURSE AT BEDSIDE. PT IS SLEEPING. NOTED THE IV ON L HAND 22G NS AT 40ML. NOTED THE L HAND 22G SL. WILL BE BACK TO ASSESS PT.
[2017-01-22 08:00] VITALS: BP 152/96
--- NOTE | 2017-01-22 08:15 | NUR ---
V/S TAKEN. BP QUITE ELEVATED. WILL SEE WHAT MEDS HE HAS. PT IS A WHITE MALE, ALERT AND AWAKE. PT IS HARD OF HEARING. NOTED THE COVERED BANDAGING ON R LEG AND R ARM BC OF SKIN TEAR. PT HAS A PU ON THE SACRAL AREA. WILL BE DOING WOUND CARE LATER. NOTED THE R HEAL BOOT FOR PU. PT ALSO HAS A SUPRA PUBIC CATH. HAS A SLIGHT COUGH, SCANT SPUTUM. NO PAIN AT THIS TIME. NO COMPLAINTS. ALL SAFETY MEASURES IN PLACE, WILL CONTINUE TO MONITOR PT.
[2017-01-22] MEDS: MAGNESIUM OXIDE 400 MG TAB PO SCH ×2 (08:35→20:47)
[2017-01-22] MEDS: GABAPENTIN 100 MG CAP PO SCH ×2 (08:35→20:47)
[2017-01-22] MEDS: LEVOFLOXACIN 250 MG/D5 PREMIX 50 ML IV SCH (08:35)
[2017-01-22] MEDS: DOCUSATE SODIUM 100 MG GELCAP PO SCH (08:35)
[2017-01-22] MEDS: ECOTRIN 81 MG TABEC PO SCH (08:35)
[2017-01-22] MEDS: SEVELAMER CARBONATE 800 MG TAB PO SCH ×3 (08:36→16:56)
[2017-01-22] MEDS: LACTOBACILLUS RHAMNOSUS GG 1 EACH CAP PO SCH (08:44)
[2017-01-22] MEDS: NYSTATIN POW 100 MU/GM 15 GM BTL TP SCH ×2 (08:45→20:47)
--- NOTE | 2017-01-22 08:45 | NUR ---
ADMINISTERED MORNING MEDS. PT TOLERATED WELL. WILL CONTINUE TO MONITOR PT.
--- NOTE | 2017-01-22 10:30 | NUR ---
PT SLEEPING. NO SIGNS OF DISTRESS. WILL CONTINUE TO MONITOR PT.
--- NOTE | 2017-01-22 10:38 | NUR ---
SS NOTE: PER NANY FROM [facility] ([phone]), PT CAN GO TO ROOM 32B UNDER DR. MERNA AYALA UPON DISCHARGE. I LEFT A MESSAGE FOR PT'S YREEAK-VL-OAL, LILIBETH REGARDING PT'S D/C PLAN REQUESTED BY PT'S BROTHER, RASHARD. Addendum: 01/22/17 at 1151 by Sheryl Luz SS NANY FROM [facility] IS AWARE THAT PT WILL NEED CONTACT ISO, MICROBIOLOGY SENT ON 01/21/17
--- NOTE | 2017-01-22 11:16 | NUR ---
P.T. NOTES CONTACT ISOL PREC OBSERVED; Pt WAS SEEN SLEEPY IN BED, WOKE UP W/ P.T., ENCOURAGED FOR OOB W/ P.T. & B/S EXER, Pt REFUSED, P.T. STAFF OFFERED TO RETURN LATER, Pt STATES NOT TODAY, APPEARS WITHDRAWN, REVIEWED HEP & ENCOURAGED TO GET UP W/ NURSE STAFF, Pt APPRECIATIVE; CALL RODRÍGUEZ, PHONE, TABLE IN REACH; FOLLOW UP NEXT TX. PVE
--- NOTE | 2017-01-22 11:38 | NUR ---
PT IS SLEEPING SOUNDLY. NO SIGNS OF DISTRESS. WILL CONTINUE TO MONITOR PT.
--- NOTE | 2017-01-22 13:00 | NUR ---
RESTING COMFORTABLY AFTER LUNCH. WATCHING TV. NO SIGNS OF DISTRESS. ALL NEEDS MET. WILL CONTINUE TO MONITOR PT.
--- NOTE | 2017-01-22 13:00 | NUR ---
WOUND CARE. REMOVED OLD DRESSING. CLEANSED WITH NS, PAT DRY, APPLY THERAHONEY. APPLY FOAM DRESSING ON COCCYX/SACRAL AREA, WRAPPED THE HEEL WITH CLING WRAP, TRANSPARENT DRESSING ON R FOREARM, AND ADHESIVE ISLAND WOUND DRESSING TO THE R LEG AND L ELBOW. PT TOLERATED WELL.
[2017-01-22] MEDS: CLINDAMYCIN 600 MG in DEXTROSE 5% 50 ML IV SCH ×2 (13:18→20:46)
[2017-01-22] MEDS: THERAHONEY GEL 42.5 GM TP SCH ×2 (13:33→13:37)
--- NOTE | 2017-01-22 14:02 | NUR ---
SS NOTE: I RECEIVED A CALL BACK FROM PT'S UTCVOA-EE-COB, LILIBETH RASCON ([phone]) AND SHE STATED THAT SHE WOULD LIKE PT TO RETURN TO [facility] UPON DISCHARGE. SHE ALSO STATED THAT SHE WOULD LIKE [facility] TO SCHEDULE A FOLLOW UP APPT WITH PT'S ONCOLOGIST APPT WITH DR. CASTILLO ([phone]) SO THAT THEY CAN DETERMINE WHAT THE NEXT STEPS ARE IN PT'S CARE. Addendum: 01/22/17 at 1416 by Sheryl Luz I SPOKE WITH PHILLIP FROM [facility] AND INFORMED HER OF THE ABOVE INFORMATION. SHE STATED THAT SHE WILL GIVE DR. CASTILLO AND DR. LORA'S PHONE NUMBERS TO THEIR SOCIAL SERVICE DEPT SO THAT THEY CAN SCHEDULE OUTPT APPTS FOR PT.
--- NOTE | 2017-01-22 14:35 | NUR ---
ASSISTED SERVICE LINE LAYER CHANGE LINENS AND GOWN. WOUND DRESSING STILL INTACT. WILL CONTINUE TO MONITOR.
[2017-01-22] MEDS: MORPHINE SULFATE 2 MG/ML SYR IVP PRN ×2 (15:45→21:08)
--- NOTE | 2017-01-22 15:51 | NUR ---
01/22/17 RD FOLLOW UP COMPLETED PLEASE REFER TO NUTRITION PROGRESS NOTE UNDER CARE ACTIVITY FOR ESTIMATED NUTRITION NEEDS RD RECOMMENDATIONS: 1. CONTINUE SOFT DIET WITH BOOST PLUS TID TOLERATED PER MD 2. ENCOURAGE INCREASED PO INTAKES 3. RD WILL F/U 2-3 DAYS; HIGH RISK. HARMEET MILLER RD
[2017-01-22 16:00] VITALS: BP 147/78
--- NOTE | 2017-01-22 16:26 | NUR ---
RESTING QUIETLY. NO SIGNS OF DISTRESS. NO COMPLAINTS AT THIS TIME. WILL CONTINUE TO MONITOR PT.
--- NOTE | 2017-01-22 17:20 | NUR ---
FAMILY VISITING. PT IS EATING HIS DINNER. NO COMPLAINTS AT THIS TIME. WILL CONTINUE TO MONITOR PT.
--- NOTE | 2017-01-22 19:10 | NUR ---
PT SLEEPING SOUNDLY. ENDORSED PT TO THE FILLING MACHINE TENDER NURSE AT BEDSIDE. PT IN STABLE CONDITION.
--- NOTE | 2017-01-22 19:12 | NUR ---
RECEIVED REPORT FROM DEBORAH HOBBS FOR CONTINUITY OF CARE. PATIENT IS A&OX3, DISCUSSED PLAN OF CARE WITH PATIENT. ABLE TO VERBALIZE UNDERSTANDING. SHIFT ASSESSMENT DONE, VS TAKEN, TEMP 101.2, IMPLEMENTED COOLING MEASURES, ALL OTHER VS STABLE. NO S/S OF RESPIRATORY DISTRESS NOTED ON ROOM AIR, PT HAS INTERMITTENT COUGH, EDUCATED PT TO TAKE DEEP BREATHES PER PT TRIES TO AVOID COUGHING. PATIENT STATES GENERAL PAIN IN BODY, WILL MEDICATE PER MD ORDER. PT HAS SACRAL WOUND, DRESSING IS DRY AND INTACT. PT HAS RT HEEL ULCER WITH BILATERAL HEEL PROTECTORS. PT ALSO HAS RT LEG, RT ARM , AND LEFT ARM SKIN TEAR. IV TO RT HAND 22 GAUGE AND IV TO LT HAND 22 GAUGE PATENT AND FLUSHED. SUPRAPUBIC CATHETER NOTED WITH CLEAR YELLOW URINE DRAINING TO GRAVITY. SAFETY/ FALL / PRESSURE PRECAUTIONS ENFORCED. CALL LIGHT WITHIN REACH. WILL CONTINUE TO MONITOR.
[2017-01-22 20:00] VITALS: BP 142/98
[2017-01-22] MEDS: NACL 0.9% 1,000 ML IV SCH (20:46)
--- NOTE | 2017-01-22 20:47 | NUR ---
DUE MEDICATIONS ADMINISTERED, TOLERATED WELL. TURNED PATIENT AND REPOSITIONED TO OFFLOAD PRESSURE. CALL LIGHT WITHIN REACH.
[2017-01-22] MEDS: ACETAMINOPHEN 325 MG TAB PO PRN (21:07)
--- NOTE | 2017-01-22 21:08 | NUR ---
MEDICATED PATIENT FOR PAIN PER MD ORDER, PT GIVEN TYLENOL FOR TEMP, WILL REASSESS.
[2017-01-23] VITALS: BP 132/91
--- NOTE | 2017-01-23 | NUR ---
VS TAKEN, TEMP NOW AT 99.8, REFILLED ICE PACKS AND REMOVED BLANKETS. WILL CONTINUE TO MONITOR.
--- NOTE | 2017-01-23 02:03 | NUR ---
PT IS SLEEPING. NO S/S OF DISTRESS NOTED. WILL CONTINUE TO MONITOR.
--- NOTE | 2017-01-23 04:02 | NUR ---
CATHETER BAG EMPTIED, 750 ML URINE NOTED. TEMP NOW 98.3, REMOVED ICE PACKS. CALL LIGHT WITHIN REACH.
[2017-01-23] MEDS: CLINDAMYCIN 600 MG in DEXTROSE 5% 50 ML IV SCH ×3 (04:28→21:48)
[2017-01-23] MEDS: PANTOPRAZOLE 40 MG TABEC PO SCH (06:33)
--- NOTE | 2017-01-23 06:33 | NUR ---
DUE MEDICATIONS ADMINISTERED, TOLERATED WELL. NO S/S OF DISTRESS NOTED.
[2017-01-23] MEDS: MORPHINE SULFATE 2 MG/ML SYR IVP PRN (07:02)
--- NOTE | 2017-01-23 07:10 | NUR ---
RECEIVED PATIENT REPORT AT BEDSIDE. PATIENT AWAKE, ALERT AND ORIENTED. NO S/S OF DISTRESS NOTED. IV TO THE LEFT HAND INTACT WITH IVF INFUSING WELL. BILATERAL HEEL PROTECTORS IN PLACE. PATIENT HAS SACRAL WOUND COVERED WITH CLEAN DRY AND INTACT DRESSING. SUPRAPUBIC CATHETER IN PLACE, DRAINING CLEAR YELLOW URINE. CONTACT PRECAUTION IN PLACE. PATIENT ON TELE MONITORING. BED LOWERED WITH CALL LIGHT WITHIN REACH. WILL CONTINUE TO MONITOR
--- NOTE | 2017-01-23 07:21 | NUR ---
ENDORSED PATIENT TO IMTIAZ RN FOR CONTINUITY OF CARE, PATIENT IS IN STABLE CONDITION.
[2017-01-23 08:00] VITALS: BP 146/85
[2017-01-23] MEDS: GABAPENTIN 100 MG CAP PO SCH ×2 (08:09→21:49)
[2017-01-23] MEDS: LEVOFLOXACIN 250 MG/D5 PREMIX 50 ML IV SCH (08:09)
[2017-01-23] MEDS: LACTOBACILLUS RHAMNOSUS GG 1 EACH CAP PO SCH (08:09)
[2017-01-23] MEDS: SEVELAMER CARBONATE 800 MG TAB PO SCH ×2 (08:10→12:25)
[2017-01-23] MEDS: ECOTRIN 81 MG TABEC PO SCH (08:10)
[2017-01-23] MEDS: DOCUSATE SODIUM 100 MG GELCAP PO SCH (08:10)
--- NOTE | 2017-01-23 08:10 | NUR ---
MADE DR AYOUB AWARE OF PT'S MG LEVEL OF 1.5
[2017-01-23] MEDS: NYSTATIN POW 100 MU/GM 15 GM BTL TP SCH ×2 (09:00→21:59)
--- NOTE | 2017-01-23 10:50 | NUR ---
DR AYOUB SPEAKING WITH PATIENT'S FAMILY MEMBER REGARDING OUTPATIENT CONSULTATION
[2017-01-23] MEDS ORDERED: MAG SULF 2000 MG/WATER PREMIX 100 ML IV SCH (11:00)
[2017-01-23] MEDS ORDERED: MORPHINE SULFATE 2 MG/ML SYR IVP PRN (11:05)
[2017-01-23] MEDS: THERAHONEY GEL 42.5 GM TP SCH ×2 (13:00)
--- NOTE | 2017-01-23 14:30 | NUR ---
DRESSING ON THE SACRAL WOUND CHANGED. PATIENT REPOSITIONED. PATIENT TOLERATED WELL.
[2017-01-23 16:00] VITALS: BP 155/87
--- NOTE | 2017-01-23 16:00 | NUR ---
PATIENT REPOSITIONED. NO S/S OF DISTRESS NOTED
--- NOTE | 2017-01-23 16:11 | NUR ---
P.T. NOTES REFER TO WEEKLY SUMMARY; CONTINUE P.T. ONCE DAILY 5X/WK X 1 WK PER POC.
--- NOTE | 2017-01-23 17:14 | NUR ---
PATIENT ASLEEP IN BED. NO S/S OF DISTRESS NOTED
--- NOTE | 2017-01-23 17:30 | NUR ---
UNABLE TO OBTAIN REQUESTED MEDICAL RECORDS FROM [facility]. OFFICE IS CLOSED ON THE WEEKENDS
--- NOTE | 2017-01-23 19:23 | NUR ---
PATIENT REPORT GIVEN AT BEDSIDE. PATIENT ENDORSED TO THE NIGHT NURSE IN STABLE CONDITION
--- NOTE | 2017-01-23 19:30 | NUR ---
RECEIVED PT IN STABLE CONDITION FROM AM NURSE. AWAKE,ALERT AND ORIENTED X3. MED SURG. BEDREST. HAS IVF INFUSING WELL ON THE LT HAND#22. HAS SUPRA PUBIC CATHETER TO GRAVITY. SCROTUM SWOLLEN AND HAS CREAMY WHITISH COLOR DRAIN. HAS RT LEG SKIN TEAR WITH DRESSING, RT HEEL AND LOWER BUTTOCKS PRESSURE ULCER. RT ARM SKIN TEAR ALSO WITH DRESSING. PLAN OF CARE DISCUSSED. BED ON LOW POSITION, SIDE RAILS UP X2. FREQUENT ROUNDS NEEDED. CALL LIGHT PLACED WITHIN EASY REACH. WILL CONTINUE TO MONITOR.
--- NOTE | 2017-01-23 22:00 | NUR ---
REPOSITIONED FOR COMFORT. NO C/O ANY PAIN NOTED.
[2017-01-24] VITALS: BP 130/78
--- NOTE | 2017-01-24 00:15 | NUR ---
HAD A SMALL SOFT DARK GREENISH STOOL . CLEANED AND KEPT DRY. REPOSITIONED FOR COMFORT AFTER .
--- NOTE | 2017-01-24 02:00 | NUR ---
SLEEPING AT THIS TIME. NO S/S OF ANY DISTRESS ,DISCOMFORT NOTED.
[2017-01-24] MEDS: CLINDAMYCIN 600 MG in DEXTROSE 5% 50 ML IV SCH ×2 (04:58→12:34)
--- NOTE | 2017-01-24 05:08 | NUR ---
PT ABOUT TO CHANGE DRESSING ON THE SACRAL.BUTTOCKS AREA WHEN PT C/O PAIN WE TURN. MEDICATED ORDERED FOR PAIN. WILL COME BACK WHEN NO MORE PAIN.
[2017-01-24] MEDS: PANTOPRAZOLE 40 MG TABEC PO SCH (05:59)
--- NOTE | 2017-01-24 06:15 | NUR ---
DRESSING ON THE BUTTOCKS WAS SOAKED. DRESSING WAS CHANGED ORDERED
--- NOTE | 2017-01-24 07:10 | NUR ---
ENDORSED PT IN STABLE CONDITION TO AM NURSE.
--- NOTE | 2017-01-24 07:10 | NUR ---
RECEIVED PATIENT REPORT AT BEDSIDE. PATIENT AWAKE, ALERT AND ORIENTED. NO S/S OF DISTRESS NOTED. WOUND DRESSING NOTED TO THE RIGHT HEEL AND SACRUM. DRESSINGS CLEAN DRY AND INTACT. IV TO THE LEFT HAND INTACT WITH IVF INFUSING WELL. SUPRAPUBIC CATHETER IN PLACE DRAINING CLEAR YELLOW URINE. BED LOWERED WITH CALL LIGHT WITHIN REACH. WILL CONTINUE TO MONITOR
[2017-01-24] MEDS ORDERED: MAG SULF 2000 MG/WATER PREMIX 100 ML IV ONE (07:40)
[2017-01-24 08:00] VITALS: BP 133/81
[2017-01-24] MEDS: SEVELAMER CARBONATE 800 MG TAB PO SCH ×2 (08:08→12:34)
[2017-01-24] MEDS: ECOTRIN 81 MG TABEC PO SCH (08:08)
[2017-01-24] MEDS: LACTOBACILLUS RHAMNOSUS GG 1 EACH CAP PO SCH (08:08)
[2017-01-24] MEDS: DOCUSATE SODIUM 100 MG GELCAP PO SCH ×3 (08:08→09:00)
[2017-01-24] MEDS: LEVOFLOXACIN 250 MG/D5 PREMIX 50 ML IV SCH (08:08)
[2017-01-24] MEDS: GABAPENTIN 100 MG CAP PO SCH (08:09)
[2017-01-24] MEDS: NYSTATIN POW 100 MU/GM 15 GM BTL TP SCH (09:00)
[2017-01-24] MEDS ORDERED: SEVELAMER CARBONATE 800 MG TAB PO SCH ×2 (09:00→17:00)
--- NOTE | 2017-01-24 11:01 | NUR ---
PATIENT IN BED WATCHING TV. NO S/S OF DISTRESS NOTED
--- NOTE | 2017-01-24 11:30 | NUR ---
SACRAL AND RIGHT HEEL WOUND DRESSING CHANGED. PICTURES TAKEN AND FILED IN THE CHART. PATIENT TOLERATED WELL
[2017-01-24] MEDS ORDERED: CLEOCIN HCL300 MG PO (11:44)
[2017-01-24] MEDS ORDERED: levaquin PO (11:45)
[2017-01-24] MEDS ORDERED: PHOSLO667 M1 PO (11:47)
[2017-01-24] MEDS ORDERED: RENVELA800 MG PO (11:47)
[2017-01-24] MEDS ORDERED: PANTOPRAZOLE SO40 MG PO (11:50)
[2017-01-24] MEDS ORDERED: GABAPENTIN100 M1 PO (11:50)
[2017-01-24] MEDS ORDERED: A & D OINT45 GM TP (11:50)
[2017-01-24] MEDS ORDERED: CULTURELLE10 Billion PO (11:50)
[2017-01-24] MEDS ORDERED: CATAPRES0.1 M1 PO (11:50)
[2017-01-24] MEDS ORDERED: ASPIRIN ADULT L81 M2 PO (11:50)
[2017-01-24] MEDS ORDERED: MYCOSTATIN100000 U/2 TP (11:52)
[2017-01-24] MEDS ORDERED: ACETAMINOPHEN325 M2 PO (11:52)
[2017-01-24] MEDS: THERAHONEY GEL 42.5 GM TP SCH ×2 (13:00)
--- NOTE | 2017-01-24 13:05 | NUR ---
NOTIFIED PT'S FAMILY MEMBER SCOTT RASCON THAT PATIENT WILL BE TRANSFERRED BACK TO [facility] TODAY.
[2017-01-24] MEDS ORDERED: MORPHINE SU2 MG/1 ML IVP (14:10)
[2017-01-24] MEDS ORDERED: OPTIMUM FOLIC800 MCG PO (14:24)
--- NOTE | 2017-01-24 15:00 | NUR ---
PATIENT HAD A BM. PERINEAL CARE GIVEN. PATIENT TURNED AND REPOSITIONED. PATIENT TOLERATED WELL
--- NOTE | 2017-01-24 15:20 | NUR ---
PATIENT DISCHARGED [place] [facility] LINES DISCONTINUED. DISCHARGE INSTRUCTIONS GIVEN. PATIENT VERBALIZED UNDERSTANDING. PATIENT LEFT WITH ALL HIS BELONGINGS AND DISCHARGE PAPERS. PATIENT PICKED UP BY [facility]. PATIENT LEFT IN STABLE CONDITION.
== END 2017-01-24 15:20 | DRG 853 ==
LOC: MED 22:07 → MTU 01-16 00:37
PROVIDERS: ADMIT Family Medicine; ATTEND Family Medicine
PROC: 0T2BX0Z Change Drainage Device in Bladder, External Approach (ICD-10-PCS; principal; 2017-01-17)
PROC: 30233N1 Transfusion of Nonautologous Red Blood Cells into Peripheral Vein, Percutaneous Approach (ICD-10-PCS; 2017-01-17)
PROC: 0HBRXZZ Excision of Toe Nail, External Approach (ICD-10-PCS; 2017-01-19)
PROC: 0HBRXZZ Excision of Toe Nail, External Approach (ICD-10-PCS; 2017-01-19)
PROC: 0HBRXZZ Excision of Toe Nail, External Approach (ICD-10-PCS; 2017-01-19)
PROC: 0HBRXZZ Excision of Toe Nail, External Approach (ICD-10-PCS; 2017-01-19)
PROC: 0HBRXZZ Excision of Toe Nail, External Approach (ICD-10-PCS; 2017-01-19)
PROC: 0HBRXZZ Excision of Toe Nail, External Approach (ICD-10-PCS; 2017-01-19)
PROC: 0HBRXZZ Excision of Toe Nail, External Approach (ICD-10-PCS; 2017-01-19)
PROC: 0HBRXZZ Excision of Toe Nail, External Approach (ICD-10-PCS; 2017-01-19)
PROC: 0HBRXZZ Excision of Toe Nail, External Approach (ICD-10-PCS; 2017-01-19)
PROC: 0HBRXZZ Excision of Toe Nail, External Approach (ICD-10-PCS; 2017-01-19)
PROC: 0JB70ZZ Excision of Back Subcutaneous Tissue and Fascia, Open Approach (ICD-10-PCS; 2017-01-20)
DX: A41.9 Sepsis, unspecified organism (principal); J69.0 Pneumonitis due to inhalation of food and vomit; N17.0 Acute kidney failure with tubular necrosis; L89.153 Pressure ulcer of sacral region, stage 3; G82.20 Paraplegia, unspecified; N39.0 Urinary tract infection, site not specified; E87.1 Hypo-osmolality and hyponatremia; B49 Unspecified mycosis; I42.9 Cardiomyopathy, unspecified; E86.0 Dehydration; I25.10 Atherosclerotic heart disease of native coronary artery without angina pectoris; L89.611 Pressure ulcer of right heel, stage 1; I12.9 Hypertensive chronic kidney disease with stage 1 through stage 4 chronic kidney disease, or unspecified chronic kidney disease; N18.9 Chronic kidney disease, unspecified; E83.42 Hypomagnesemia; E83.39 Other disorders of phosphorus metabolism; D63.8 Anemia in other chronic diseases classified elsewhere; E02 Subclinical iodine-deficiency hypothyroidism; B35.1 Tinea unguium; M47.9 Spondylosis, unspecified; I34.0 Nonrheumatic mitral (valve) insufficiency; E53.8 Deficiency of other specified B group vitamins; Z74.01 Bed confinement status; Z90.5 Acquired absence of kidney; Z85.46 Personal history of malignant neoplasm of prostate; Z86.14 Personal history of Methicillin resistant Staphylococcus aureus infection; Z92.3 Personal history of irradiation